=== PATIENT | female | born 1995 | race American Indian/Alaskan Native ===

== ENCOUNTER 2020-05-24 07:14 | Emergency (ER) | payer SELFPAY ==
[2020-05-24 07:52] VITALS: BP 107/73
== END 2020-05-24 10:10 | disposition left against medical advice (07) ==
LOC: ED 07:14
DX: K08.89 Other specified disorders of teeth and supporting structures (principal); Z53.21 Procedure and treatment not carried out due to patient leaving prior to being seen by health care provider